=== PATIENT | female | born 1960 | race Two or more races ===

== ENCOUNTER 2019-05-27 21:19 | Emergency (ER) | payer SELFPAY ==
[~2019-05-27] VITALS: Ht 157.5 cm; Wt 59.0 kg
--- NOTE | 2019-05-27 21:22 | NUR ---
ED Nurse Note: provided sitter nayeli for patient's safety.
[2019-05-27 21:30] VITALS: BP 122/75
--- NOTE | 2019-05-27 21:30 | NUR ---
ED Nurse Note: Patient brought in by ambulance d/t danger to others, patient on 5150 hold. Per patient, she was at a restaurant that declined to give her credit card and denies being a harm to others. Patient aao to person and place. Patient ambulatory. Patient placed in psych gown and safety measures implemented. Patient provided with drinks and snacks. No acute distress noted.
--- NOTE | 2019-05-27 21:43 | NUR ---
ED Nurse Note: Belongings list completed, unable to remove several rings and braceletes on patient d/t tight fit, patient belongings placed in locker 3.
[2019-05-27 22:17] LABS: BASOPHILS % (AUTO) 1.8 % (0.0-2.0); EOSINOPHILS % (AUTO) 2.1 % (0.0-3.0); HEMATOCRIT 37.9 % (37.0-47.0); HEMOGLOBIN 11.6 G/DL (12.0-16.0); LYMPHOCYTES % (AUTO) 43.9 % (20.0-45.0); MEAN CORPUSCULAR VOLUME 88 FL (80-99); MONOCYTES % (AUTO) 9.1 % (1.0-10.0); NEUTROPHILS % (AUTO) 43.2 % (45.0-75.0); PLATELET COUNT 437 K/UL (150-450); RED BLOOD COUNT 4.29 M/UL (4.20-5.40); RED CELL DISTRIBUTION WIDTH 14.4 % (11.6-14.8); WHITE BLOOD COUNT 6.3 K/UL (4.8-10.8)
--- NOTE | 2019-05-27 22:17 | Emergency Room Report ---
History of Present Illness General Chief Complaint: Behavioral Complaint Source: Patient, EMS Present Illness HPI 58-year-old female presents ED for evaluation. Brought in by EMS for psychiatric evaluation. Was in custody and started to threaten others attacking staff members. Patient does have a psychiatric history as per [employer]. Denies SI. Denies hearing voices. Denies taking any medications. Denies alcohol or drug use. Is on 5150 hold. No other aggravating relieving factors. Denies any other associated symptoms Allergies: Coded Allergies: PENICILLINS (Verified Allergy, Unknown, 05/27/19) Patient History Past Medical History: DM, psych hx Past Surgical History: none Social History: Denies: smoking, alcohol use, drug use Now: No Immunizations: UTD Reviewed Nursing Documentation: PMH: Agreed; PSxH: Agreed Nursing Documentation-PMH Hx Diabetes: Yes History Of Psychiatric Problem: Yes Review of Systems All Other Systems: negative except mentioned in HPI Physical Exam Vital Signs Date Time Temp Pulse Resp B/P (MAP) Pulse Ox O2 Delivery O2 Flow Rate FiO2 05/27/19 21:22 97.5 70 16 118/77 (91) 99 Room Air Sp02 EP Interpretation: reviewed, normal General Appearance: no apparent distress, alert, GCS 15, non-toxic Head: normocephalic, atraumatic Eyes: bilateral eye normal inspection, bilateral eye PERRL ENT: hearing grossly normal, normal pharynx, no angioedema, normal voice Neck: full range of motion, supple/symm/no masses Respiratory: chest non-tender, lungs clear, normal breath sounds, speaking full sentences Cardiovascular #1: regular rate, rhythm, no edema Cardiovascular #2: 2+ carotid (R), 2+ carotid (L), 2+ radial (R), 2+ radial (L) , 2+ dorsalis pedis (R), 2+ dorsalis pedis (L) Gastrointestinal: normal bowel sounds, non tender, soft, non-distended, no guarding, no rebound Rectal: deferred Genitourinary: normal inspection, no CVA tenderness Musculoskeletal: back normal, normal range of motion, gait/station normal, non- tender Neurologic: alert, motor strength/tone normal, oriented x3, sensory intact, responsive, speech normal Psychiatric: anxious Reflexes: 3+ bicep (R), 3+ bicep (L), 3+ tricep (R), 3+ tricep (L), 3+ knee (R) , 3+ knee (L) Skin: no rash Lymphatic: no adenopathy Medical Decision Making Diagnostic Impression: Primary Impression: Behavioral disorder Additional Impression: Substance abuse ER Course Hospital Course 58-year-old female presents for psychiatric evaluation. On 5150. Danger to others Differential diagnoses include: Major depressive disorder, unspecified psychosis , EtOH abuse, drug abuse Clinical course Patient placed on stretcher. On one to one observation. After initial history and physical I ordered labs, U. tox Labs-electrolytes normal, aspirin/Tylenol levels normal, EtOH level normal, U. tox +BZs, ampehtamines Patient is medically cleared and pending psychiatric evaluation. i. I feel this is a highly complex case requiring extensive working including EKG/Rhythm strip, Xray/CT/US, Blood/urine lab work, repeat exams while in ED, and administration of strong opiates/narcotics for pain control, admission to hospital or close patient follow up. Labs Test 05/27/19 21:44 05/28/19 00:13 White Blood Count 6.3 K/UL (4.8-10.8) Red Blood Count 4.29 M/UL (4.20-5.40) Hemoglobin 11.6 G/DL (12.0-16.0) Hematocrit 37.9 % (37.0-47.0) Mean Corpuscular Volume 88 FL (80-99) Mean Corpuscular Hemoglobin 27.1 PG (27.0-31.0) Mean Corpuscular Hemoglobin Concent 30.7 G/DL (32.0-36.0) Red Cell Distribution Width 14.4 % (11.6-14.8) Platelet Count 437 K/UL (150-450) Mean Platelet Volume 7.7 FL (6.5-10.1) Neutrophils (%) (Auto) 43.2 % (45.0-75.0) Lymphocytes (%) (Auto) 43.9 % (20.0-45.0) Monocytes (%) (Auto) 9.1 % (1.0-10.0) Eosinophils (%) (Auto) 2.1 % (0.0-3.0) Basophils (%) (Auto) 1.8 % (0.0-2.0) Sodium Level 144 MMOL/L (136-145) Potassium Level 3.9 MMOL/L (3.5-5.1) Chloride Level 106 MMOL/L (98-107) Carbon Dioxide Level 28 MMOL/L (21-32) Anion Gap 10 mmol/L (5-15) Blood Urea Nitrogen 13 mg/dL (7-18) Creatinine 0.7 MG/DL (0.55-1.30) Estimat Glomerular Filtration Rate > 60 mL/min (>60) Glucose Level 98 MG/DL (74-106) Calcium Level 9.0 MG/DL (8.5-10.1) Total Bilirubin 0.3 MG/DL (0.2-1.0) Aspartate Amino Transf (AST/SGOT) 32 U/L (15-37) Alanine Aminotransferase (ALT/SGPT) 31 U/L (12-78) Alkaline Phosphatase 83 U/L (46-116) Total Protein 7.8 G/DL (6.4-8.2) Albumin 3.9 G/DL (3.4-5.0) Globulin 3.9 g/dL Albumin/Globulin Ratio 1.0 (1.0-2.7) Salicylates Level 1.2 ug/mL (2.8-20) Acetaminophen Level < 2 MCG/ML (10-30) Serum Alcohol < 3 mg/dL Urine Color Yellow Urine Appearance Clear Urine pH 5 (4.5-8.0) Urine Specific [place] 1.015 (1.005-1.035) Urine Protein 1+ (NEGATIVE) Urine Glucose (UA) Negative (NEGATIVE) Urine Ketones Negative (NEGATIVE) Urine Blood Negative (NEGATIVE) Urine Nitrite Negative (NEGATIVE) Urine Bilirubin Negative (NEGATIVE) Urine Urobilinogen 1 MG/DL (0.0-1.0) Urine Leukocyte Esterase Negative (NEGATIVE) Urine RBC 0-2 /HPF (0 - 2) Urine WBC 0-2 /HPF (0 - 2) Urine Squamous Epithelial Cells Few /LPF (NONE/OCC) Urine Calcium Oxalate Crystals Moderate /LPF (NONE) Urine Bacteria Occasional /HPF (NONE) Urine Mucus Few /LPF (NONE/OCC) Urine Opiates Screen Negative (NEGATIVE) Urine Barbiturates Screen Negative (NEGATIVE) Phencyclidine (PCP) Screen Negative (NEGATIVE) Urine Amphetamines Screen Positive (NEGATIVE) Urine Benzodiazepines Screen Positive (NEGATIVE) Urine Cocaine Screen Negative (NEGATIVE) Urine Marijuana (THC) Screen Negative (NEGATIVE) Last Vital Signs Date Time Temp Pulse Resp B/P (MAP) Pulse Ox O2 Delivery O2 Flow Rate FiO2 05/27/19 21:22 97.5 70 16 118/77 (91) 99 Room Air Status: improved Disposition: XFER TO PSYCH HOSP/UNIT Condition: Serious Felix Andre MD May 27, 2019 22:17
[2019-05-27 22:20] LABS: ANION GAP 10 mmol/L (5-15); BLOOD UREA NITROGEN 13 mg/dL (7-18); CARBON DIOXIDE 28 MMOL/L (21-32); CHLORIDE 106 MMOL/L (98-107); CREATININE 0.7 MG/DL (0.55-1.30); POTASSIUM 3.9 MMOL/L (3.5-5.1); SODIUM 144 MMOL/L (136-145)
--- NOTE | 2019-05-27 22:20 | NUR ---
ED Nurse Note: Patient denies SI/HI.
[2019-05-27 22:26] LABS: ALANINE AMINOTRANSFERASE 31 U/L (12-78); ALBUMIN 3.9 G/DL (3.4-5.0); ALKALINE PHOSPHATASE 83 U/L (46-116); ASPARTATE AMINO TRANSFERASE 32 U/L (15-37); BILIRUBIN,TOTAL 0.3 MG/DL (0.2-1.0)
--- NOTE | 2019-05-27 22:27 | NUR ---
ED Nurse Note: Attempted to collect urine sample x 2, patient states cannot provide sample.
--- NOTE | 2019-05-27 22:43 | NUR ---
ED Nurse Note: Patient declining to provide urine sample d/t not having had any food to eat.
--- NOTE | 2019-05-27 23:02 | NUR ---
ED Nurse Note: Patient provided with water, juice, soda, chips, and a cookie. Patient becomes agitated when told there are no hot meals available at this time.
[2019-05-28] VITALS (17 sets, daily range): BP systolic 100–128; BP diastolic 69–82
--- NOTE | 2019-05-28 00:16 | NUR ---
ED Nurse Note: Urine collected, sent to lab.
[2019-05-28 00:37] LABS: APPEARANCE,URINE CLEAR; BILIRUBIN, URINE NEGATIVE (NEGATIVE); GLUCOSE, URINE (UA) NEGATIVE (NEGATIVE); KETONES,URINE NEGATIVE (NEGATIVE); LEUKOCYTE ESTERASE ,URINE NEGATIVE (NEGATIVE); NITRITE,URINE NEGATIVE (NEGATIVE); PH,URINE 5 (4.5-8.0); PROTEIN,URINE 1+ (NEGATIVE); UROBILINOGEN,URINE 1 MG/DL (0.0-1.0)
--- NOTE | 2019-05-28 00:41 | NUR ---
ED Nurse Note: Reassessed patient, patient in bed sleeping, no acute distress.
[2019-05-28 00:44] LABS: COLOR,URINE YELLOW
[2019-05-28] MEDS ORDERED: LORazepam Inj 2mg/ml 1ml IV ONE (02:00)
--- NOTE | 2019-05-28 02:10 | NUR ---
HAND-OFF: Report given to TEENA Garcia.
[2019-05-28] MEDS ORDERED: DiphenhydrAMINE 50mg/ml Inj IM ONE (02:15)
[2019-05-28] MEDS ORDERED: Haloperidol 5mg/ml Inj IM ONE (02:15)
[2019-05-28] MEDS ORDERED: LORazepam Inj 2mg/ml 1ml IM ONE (02:15)
--- NOTE | 2019-05-28 02:19 | NUR ---
ED Nurse Note: Pt combative, shouting, screaming, threatening staff. All medications were previously administered, pt tolerated well, no adverse reactions. VSS, no ss of distress noted
--- NOTE | 2019-05-28 02:34 | NUR ---
ED Nurse Note: pt sleeping in bed, VSS, no s/s of distress noted. Pt skin in tact, no swelling, pulses palpable. ERMD notified
--- NOTE | 2019-05-28 02:37 | NUR ---
ED Nurse Note: Sitter at bedside
--- NOTE | 2019-05-28 02:37 | NUR ---
ED Nurse Note: ERMD dc restraints. restraints removed, vss no s/s of distress noted, skin intact, no swelling. pulses palpable. Pt sleeping.
--- NOTE | 2019-05-28 03:25 | NUR ---
ED Nurse Note: pt sleeping comfrotably in bed, no s/s distress noted, RR16, pulses palpable.
--- NOTE | 2019-05-28 03:37 | NUR ---
ED Nurse Note: sitter at bedside
--- NOTE | 2019-05-28 04:37 | NUR ---
ED Nurse Note: sitter at bedside
--- NOTE | 2019-05-28 05:30 | NUR ---
ED Nurse Note: pt sleeping in bed, vss no s/s of distress noted.
--- NOTE | 2019-05-28 05:37 | NUR ---
ED Nurse Note: sitter at bedside
--- NOTE | 2019-05-28 06:37 | NUR ---
ED Nurse Note: sitter at bedside
--- NOTE | 2019-05-28 07:01 | NUR ---
ED Nurse Note: Report given to TEENA Sanchez. Pt sleeping in bed, no s/s of distress noted
--- NOTE | 2019-05-28 07:05 | NUR ---
ED Nurse Note: Handoff report received from Jose DICKINSON. Patient resting in bed, no s/s of acute distress. Sitter at bedside.
--- NOTE | 2019-05-28 09:02 | NUR ---
ED Nurse Note: Patient resting in bed, no s/s of acute distress. Patient currently non-combative, cooperative.
--- NOTE | 2019-05-28 13:07 | NUR ---
ED Nurse Note: Patient resting in bed, no s/s of acute distress.
--- NOTE | 2019-05-28 15:15 | NUR ---
ED Nurse Note: Patient resting in bed, no s/s of acute distress.
--- NOTE | 2019-05-28 17:45 | NUR ---
ED Nurse Note: Patient resting in bed, no s/s of acute distress.
--- NOTE | 2019-05-28 19:05 | NUR ---
ED Nurse Note: Received report from Durga RN. Pt awake and alert. Not in any distress. Denies SI/ HI at this time. VSS. Will cont to monitor.
--- NOTE | 2019-05-28 20:16 | NUR ---
ED Nurse Note: Pt offered meal/ snacks. Pt refused.
--- NOTE | 2019-05-28 21:05 | NUR ---
ED Nurse Note: Pt seen sleeping in bed. Not in any distress. Sitter at bedside.
--- NOTE | 2019-05-28 23:05 | NUR ---
ED Nurse Note: Pt seen sleeping in bed. Breathing even and unlabored. Sitter at bedside. Will cont to monitor.
[2019-05-29] VITALS (10 sets, daily range): BP systolic 95–131; BP diastolic 65–79
--- NOTE | 2019-05-29 01:05 | NUR ---
ED Nurse Note: Pt sleeping in bed. Sitter at bedside. Safety and comfort provided.
--- NOTE | 2019-05-29 03:05 | NUR ---
ED Nurse Note: Pt seen sleeping in bed. no SOB. Safety and comfort provided. Sitter at bedside.
--- NOTE | 2019-05-29 04:05 | NUR ---
ED Nurse Note: Pt awake, alert. Snacks provided upon request. Sitter at bedside.
--- NOTE | 2019-05-29 05:05 | NUR ---
ED Nurse Note: Pt seen sleeping in bed. Breathing even and unlabored. Safety and comfort provided. Sitter at bedside. Will continue to monitor.
--- NOTE | 2019-05-29 07:03 | NUR ---
HAND-OFF: Report given to Kayla DICKINSON. Endorsed plan of care.
--- NOTE | 2019-05-29 07:03 | NUR ---
ED Nurse Note: Pt in bed asleep, looks comfortable, vss. sitter at bedside. pt shows NAD. will continue to monitor. meal ordered for pt.
--- NOTE | 2019-05-29 07:50 | NUR ---
ED Nurse Note: Pt given breakfast tray
--- NOTE | 2019-05-29 09:30 | NUR ---
ED Nurse Note: Pt given additional juices and blanket.
--- NOTE | 2019-05-29 11:10 | NUR ---
ED Nurse Note: Pt in bed asleep. Waiting for lunch tray
--- NOTE | 2019-05-29 11:12 | NUR ---
ED Nurse Note: Pt given lunch tray. Sitter at bedside. Pt compeleted 100% of breakfast tray
--- NOTE | 2019-05-29 13:36 | NUR ---
ED Nurse Note: Pt in bed resting, vss. NAD noted. sitter at bedside. Lunch tray completed.
--- NOTE | 2019-05-29 15:12 | NUR ---
ED Nurse Note: telephone endorsement given to mary at [facility] for continuity of care.
--- NOTE | 2019-05-29 15:37 | NUR ---
ER DISCHARGE NOTE: Patient is cleared to be discharged per ERMD, pt is aox4, on room air, with stable vital signs. pt was given dc instructions, pt was able to verbalize understanding, pt id band. pt is able to ambulate with steady gait. pt took all belongings;given to [facility]. [facility] at bedside.
[2019-05-29] MEDS ORDERED: Haloperidol 5mg/ml Inj IM ONE (16:00)
== END 2019-05-29 15:37 ==
LOC: EDBD 21:19 → EMR 21:43
DX: F23 Brief psychotic disorder (principal); F19.10 Other psychoactive substance abuse, uncomplicated; Z88.0 Allergy status to penicillin; E11.9 Type 2 diabetes mellitus without complications
CPT/HCPCS: 36415; 80053; 80307; 81003; 85025; 96361; 96372; 96374; 99285; G0480; J1200; J1630; J7030